=== PATIENT | female | born 1980 | race Caucasian/White ===

== ENCOUNTER 2024-05-11 11:03 | Day surgery (SDC) | payer OTHER ==
[2024-05-11] MEDS ORDERED: LIDOCAINE HCL 2% 100 MG/5 ML IJ ONE (11:04)
[2024-05-11 11:42] LABS: HCG URINE TEST NEGATIVE (NEGATIVE)
[2024-05-11] MEDS ORDERED: propofoL IV ONE (12:09)
--- NOTE | 2024-05-11 13:40 | XRAY ---
Indication: Left C4-C6 MBB. Intraoperative fluoroscopy provided for 8 seconds. 2 digital spot image submitted for interpretation demonstrates posterior needle tips projecting over expected left C4-C6 nerve roots. Correlate with intraoperative findings/report.
--- NOTE | 2024-05-11 14:04 | XRAY ---
8 seconds of fluoroscopy was used in surgery for a left C4-C6 MBB.
== END 2024-05-11 12:55 | disposition home or self-care (01) ==
LOC: SDC-PAIN 11:03
PROVIDERS: ATTEND Psychiatry & Neurology Pain Medicine
DX: M47.812 Spondylosis without myelopathy or radiculopathy, cervical region (principal)
CPT/HCPCS: 64490; 64491; 72040; 77002; 81025; J2704

== ENCOUNTER 2024-08-10 11:20 | Day surgery (SDC) | payer OTHER ==
[2024-08-10] MEDS ORDERED: BUPIVACAINE 0.5% VIAL IJ ONE (11:21)
[2024-08-10 11:34] LABS: HCG URINE TEST NEGATIVE (NEGATIVE)
[2024-08-10] MEDS ORDERED: propofoL IV ONE (13:30)
[2024-08-10] MEDS ORDERED: Lactated Ringers 1,000 ML IV ONE (13:42)
--- NOTE | 2024-08-10 16:25 | XRAY ---
Indication: Left C4-C6 MBB. Intraoperative fluoroscopy provided for 12 seconds. 2 digital spot image submitted for interpretation demonstrates posterior needle tips projecting over expected left C4-C6 nerve roots. Correlate with intraoperative findings/report.
--- NOTE | 2024-08-10 16:39 | XRAY ---
12 seconds of fluoroscopy used in surgery for a left C4-C6 MBB.
== END 2024-08-10 13:52 | disposition home or self-care (01) ==
LOC: SDC-PAIN 11:20
PROVIDERS: ATTEND Psychiatry & Neurology Pain Medicine
DX: M47.812 Spondylosis without myelopathy or radiculopathy, cervical region (principal)
CPT/HCPCS: 64490; 64491; 72040; 81025; J2704